=== PATIENT | male | born 1965 | race Two or more races ===

== ENCOUNTER 2017-11-10 14:47 | Outpatient (CLI) | payer OTHER ==
[~2017-11-10 14:47] MED LIST: PREDNISONE10 MG PO
== END 2017-11-10 15:07 | disposition home or self-care (01) ==
LOC: MRI 14:47
DX: M51.14 Intervertebral disc disorders with radiculopathy, thoracic region (principal)
CPT/HCPCS: 72146

== ENCOUNTER → 2018-02-14 | Outpatient (CLI) | payer OTHER | END | disposition home or self-care (01) | LOC: MRI 02-09 11:41 | DX: M12.262 Villonodular synovitis (pigmented), left knee (principal); M16.11 Unilateral primary osteoarthritis, right hip; M87.151 Osteonecrosis due to drugs, right femur ==

== ENCOUNTER 2018-06-20 14:37 | Outpatient (CLI) | payer OTHER | END 2018-06-20 17:00 | disposition home or self-care (01) | LOC: TOM 14:37 | DX: J18.8 Other pneumonia, unspecified organism (principal); J84.112 Idiopathic pulmonary fibrosis; M32.10 Systemic lupus erythematosus, organ or system involvement unspecified ==

== ENCOUNTER 2019-09-29 11:51 | Outpatient (CLI) | payer OTHER | END 2019-09-29 13:14 | disposition home or self-care (01) | LOC: LAB 11:51 | DX: J45.32 Mild persistent asthma with status asthmaticus (principal); J30.1 Allergic rhinitis due to pollen ==

== ENCOUNTER → 2021-08-08 11:34 | Outpatient (CLI) | payer OTHER | END | disposition home or self-care (01) | LOC: LAB 11:34 | PROVIDERS: ATTEND Internal Medicine Geriatric Medicine | DX: A41.89 Other specified sepsis (principal); M32.8 Other forms of systemic lupus erythematosus ==

== ENCOUNTER 2023-02-16 10:01 | Outpatient (CLI) | payer OTHER | END 2023-02-16 10:26 | disposition home or self-care (01) | LOC: SONOGRAMA 10:01 | DX: N20.0 Calculus of kidney (principal); N28.1 Cyst of kidney, acquired ==

== ENCOUNTER 2023-03-02 14:36 | Outpatient (CLI) | payer OTHER | END 2023-03-02 14:37 | disposition home or self-care (01) | LOC: NUCLEAR 14:36 | PROVIDERS: ATTEND Anesthesiology | DX: M81.0 Age-related osteoporosis without current pathological fracture (principal); M32.9 Systemic lupus erythematosus, unspecified ==

== ENCOUNTER 2023-03-04 12:51 | Outpatient (CLI) | payer OTHER | END 2023-03-04 14:41 | disposition home or self-care (01) | LOC: TOM 12:51 | PROVIDERS: ATTEND Internal Medicine | DX: J18.9 Pneumonia, unspecified organism (principal) ==

== ENCOUNTER 2023-03-04 14:13 | Outpatient (CLI) | payer OTHER | END 2023-03-04 14:25 | disposition home or self-care (01) | LOC: LAB 14:13 | PROVIDERS: ATTEND Internal Medicine | DX: J18.9 Pneumonia, unspecified organism (principal) ==

== ENCOUNTER 2023-11-03 13:13 | Outpatient (CLI) | payer OTHER | END 2023-11-03 13:26 | disposition home or self-care (01) | LOC: TOM 13:13 | PROVIDERS: ATTEND Otolaryngology Otolaryngology/Facial Plastic Surgery | DX: J18.9 Pneumonia, unspecified organism (principal); J45.32 Mild persistent asthma with status asthmaticus; J30.1 Allergic rhinitis due to pollen ==

== ENCOUNTER 2024-11-16 05:29 | Day surgery (SDC) | payer OTHER ==
[2024-11-13 16:39] LABS: HEMATOCRIT 42.8 % (39.0-48.0); HEMOGLOBIN 14.8 g/dL (13-16.00); MEAN CELL VOLUME 95.3 fL (80.0-100.00); MEAN CORPUSCULAR HEMOGLOBIN 32.9 pg (27.00-32.0); MEAN CORPUSCULAR HGB CONC 34.5 g/dl (32.0-36.0); PLATELET COUNT 159 K/uL (150-450); RED BLOOD COUNT 4.49 M/uL (4.00-6.00); RED CELL DISTRIBUTION WIDTH 14.1 % (11.5-14.5)
[2024-11-13 16:51] LABS: INR 1.01; PARTIAL THROMBOPLASTIN TIME 28.9 SECONDS (22.0-34.0)
[2024-11-13 17:02] LABS: ALBUMIN 3.9 gm/dL (3.4-5.0); BILIRUBIN TOTAL 0.85 mg/dL (0.3-1.2); CREATININE SERUM 1.08 mg/dL (0.70-1.30); GFR 70.22; GLOBULINA 3.4 G/DL (2.4-3.5); POTASSIUM 4.55 mEq/L (3.5-5.1); TOTAL PROTEIN 7.3 gm/dL (6.4-8.2)
[~2024-11-16 05:29] MED LIST changes: +FINASTERIDE1 MG; +LEVO-T88 MCG; +MULTIVITAMINAS; +MYCOPHENOLATE MOFETIL 500 MG; +PEPCID AC20 MG; +PLAQUENIL 200MG; +TADALAFIL 5MG
[2024-11-16] MEDS ORDERED: METRONIDAZOLE/SODIUM CHLORIDE 500 MG/100 ML PIGGYBACK IV ONE (06:30)
[2024-11-16] MEDS ORDERED: CEFTRIAXONE SODIUM 2,000 MG VIAL ONE (06:30)
[2024-11-16] MEDS ORDERED: POVIDONE-IODINE 118 ML BOTT TOP ONE (06:34)
[2024-11-16] MEDS ORDERED: HEMOSTATIC MATRIX 1 KIT KIT TOP ONE (06:34)
[2024-11-16] MEDS ORDERED: DIBUCAINE 30 GM TUBE ONE (06:34)
[2024-11-16] MEDS ORDERED: BUPIVACAINE LIPOSOME/PF 266 MG/20 ML VIAL IJ ONE (07:02)
[2024-11-16] MEDS ORDERED: TAMSULOSIN HCL 0.4 MG CAP PO ONE (08:15)
[2024-11-16] MEDS ORDERED: OXYCODONE HCL5 MG PO (08:18)
== END 2024-11-16 12:55 | disposition home or self-care (01) ==
LOC: CIR.AMB 05:29
PROVIDERS: ATTEND Surgery
DX: D12.8 Benign neoplasm of rectum (principal); K62.0 Anal polyp; A63.0 Anogenital (venereal) warts; K29.70 Gastritis, unspecified, without bleeding; G47.30 Sleep apnea, unspecified; K62.89 Other specified diseases of anus and rectum